=== PATIENT | male | born 1960 | race Caucasian/White ===

== ENCOUNTER 2016-02-21 18:38 | Emergency (ER) | payer OTHER ==
[~2016-02-21] VITALS: Ht 182.9 cm; Wt 120.0 kg
[~2016-02-21 18:38] MED LIST: ALPR1 PO; CARV12.52 PO; IBUP600T26 PO; LISI10TA PO; MORP30SU PO
[2016-02-21 18:50] VITALS: BP 139/73; PULSE 106; RESP 16; TEMP 99; O2SAT 99
[2016-02-21] MEDS ORDERED: CARV12.52 PO (20:57)
[2016-02-21] MEDS ORDERED: GABA600T PO (20:57)
[2016-02-21] MEDS ORDERED: LISI10TA PO (20:57)
[2016-02-21] MEDS ORDERED: XANA1TAB2 PO (20:57)
[2016-02-21] MEDS ORDERED: MORP1TAB26 PO (20:57)
[2016-02-21] MEDS ORDERED: PRED20 PO (21:06)
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
[2016-02-21] MEDS ORDERED: predniSONE 20 MG TAB PO ONE (21:15)
[2016-02-21 21:22] VITALS: BP 135/72; PULSE 92; RESP 18; O2SAT 99
== END 2016-02-21 21:23 | disposition home or self-care (01) ==
LOC: PHED 18:38
DX: R21 Rash and other nonspecific skin eruption (principal); I10 Essential (primary) hypertension; E78.00 Pure hypercholesterolemia, unspecified; F17.210 Nicotine dependence, cigarettes, uncomplicated
CPT/HCPCS: 99282; J7512

== ENCOUNTER 2017-09-28 11:55 | Inpatient (IN) ==
[2017-09-28] MEDS ORDERED: Dextrose 50% in Water 50 ML Vial IV.PUSH PRN (13:48)
--- NOTE | 2017-09-28 14:06 | ED ---
HPI General Chief complaint: Recheck/Abnormal Lab/Rx Stated complaint: Abnormal results History of Present Illness HPI narrative: A 57-year-old male with a history of hypertension and chronic pain presenting to the emergency department for evaluation of an abnormal lab result. The patient states that yesterday he went for routine blood work and the lab called him to let him know that he had a high glucose. The patient reports that his PCP also called him to recommend that he go to the emergency department for evaluation. The patient states that he got the messages late last night and was unable to come to the emergency room until this afternoon. The patient states that he has been feeling very fatigued the past few days and has been urinating much more than normal. He states that he has never had problems with his sugar prior to this. The patient states that he has been drinking more than normal because he has had a really dry mouth. Patient states that he has had some blurry vision over the past 48 hours. He denies any headaches, fever, chills, abdominal pain, confusion, cough, dysuria, or hematuria. Related Data Home Medications Medication Instructions Recorded Confirmed alprazolam [Xanax] 1 mg PO BID 09/28/17 09/28/17 carvedilol 0 mg PO BID 09/28/17 09/28/17 gabapentin enacarbil 600 mg PO BID 09/28/17 09/28/17 lisinopril 0 mg PO DAILY 09/28/17 09/28/17 morphine 60 mg PO Q12H 09/28/17 09/28/17 Allergies Allergy/AdvReac Type Severity Reaction Status Date / Time metaxalone Allergy Severe Psychosis, Verified 09/29/17 08:56 Agitation, Paranoia naproxen Allergy Severe Psychosis, Verified 09/29/17 08:56 Agitation, Paranoia simvastatin Allergy Severe Irritable Verified 09/29/17 08:56 and mental changes Review of Systems Constitutional Denies chills and Denies fever(s) Eyes Reports blurry vision and Denies photophobia ENT Denies dizziness and Denies sore throat Cardiovascular Denies chest pain and Denies diaphoresis Respiratory Denies cough and Denies dyspnea Gastrointestinal Denies abdominal pain, Denies nausea and Denies vomiting Genitourinary Denies dysuria and Denies flank pain Musculoskeletal Denies myalgias and Denies muscle weakness Integumentary/Breasts Denies rash and Denies jaundice Neurologic Denies focal weakness and Denies numbness Psychiatric Denies behavioral changes and Denies confusion Endocrine Reports fatigue, Reports polydipsia and Reports polyuria Allergic/Immunologic Denies urticaria and Denies wheezing PMFSH Family History Family History Other No pertinent family history Social History Social History Substance History: No History of Abuse Second Hand Smoke Exposure: Yes Smoking Status: Current some day smoker Tobacco Type: Cigarettes Packs Per Day: 1 Cigarettes Per Day: 20.0 Years Smoked: 50 Pack-Years: 50.00 How Often Do You Have a Drink Containing Alcohol: Never [facility] within the Last 8 Weeks: No Recent Out of Country Travel within the Last 8 Weeks: No Exam Narrative Exam Narrative: GENERAL: Well-developed and well-nourished obese male appearing in no acute respiratory distress. SKIN: Focused skin assessment warm/dry. Dry and scaly skin in the lower extremities bilaterally. Patient does have a small pilonidal cyst, no fluid collection that I can appreciate. Just some dry ashen skin lower extremities. Tinea cruris as well. HEAD: Atraumatic. Normocephalic. EYES: Pupils equal and round. No scleral icterus. No injection or drainage. ENT: No nasal bleeding or discharge. Mucous membranes pink and moist. NECK: Trachea midline. No JVD. CARDIOVASCULAR: Regular rate and rhythm. No murmur appreciated. No S3 or S4. RESPIRATORY: No accessory muscle use. Clear to auscultation. Breath sounds equal bilaterally. GASTROINTESTINAL: Abdomen soft, obese, non-tender, mildly distended. Hepatic and splenic margins not palpable. Midline previous surgical scar noted. MUSCULOSKELETAL: No obvious deformities. No clubbing. No cyanosis. +2 edema in the lower extremities bilaterally. NEUROLOGICAL: Awake and alert. No obvious cranial nerve deficits. Motor grossly within normal limits. Normal speech. Course Initial Documented Vital Signs Temperature 98.3 F 09/28/17 12:06 Pulse Rate 96 H 09/28/17 12:06 Respiratory Rate 16 09/28/17 12:06 Blood Pressure 128/63 09/28/17 12:06 Pulse Oximetry 94 L 09/28/17 12:06 Last Documented Vital Signs Temperature 97.6 F 09/29/17 04:00 Pulse Rate 82 09/29/17 09:00 Respiratory Rate 11 L 09/29/17 06:02 Blood Pressure 99/43 L 09/29/17 06:02 Pulse Oximetry 96 09/29/17 07:00 Medical Decision Making MDM Narrative Medical decision making narrative: Patient room in the emergency department, additional history is that the patient's been feeling fatigued for past month or so. He is overweight and has a heavy carbohydrate intake normally. Is, no previous diagnosis of diabetes, sugar 668, he also has some evidence of mild DKA with an anion gap of 17 and a bicarb of 18. Sodium 129 which corrects well. Patient was given 2 L normal saline, will start an insulin drip. Will discuss with Dr. Godfrey for admission new onset diabetes with mild DKA Medical Screen Exam Complete: Yes Emergency Medical Condition: Yes Differential Diagnosis Differential Diagnosis: Nonketotic hyperglycemia, hyperosmolar hyperglycemic state, electrolyte abnormality, dehydration, DKA, new onset type 2 diabetes mellitus Lab Data Result diagrams: 09/28/17 14:13 09/29/17 08:15 Lab Results 09/28/17 09/28/17 09/28/17 Range/Units 14:13 14:13 15:07 CBC w Diff Auto diff final WBC 11.0 (4.0-11.0) th/mm3 RBC 4.66 (4.50-5.90) mil/mm3 Hgb 14.2 (13.0-17.0) gm/dL Hct 42.3 (39.0-51.0) % MCV 90.8 (80.0-100.0) fL MCH 30.5 (27.0-34.0) pg MCHC 33.6 (32.0-36.0) % RDW 13.4 (11.6-17.2) % Plt Count 219 (150-450) th/mm3 MPV 8.4 (7.0-11.0) fL Neut % (Auto) 68.4 (16.0-70.0) % Lymph % (Auto) 21.8 (9.0-44.0) % [place] % (Auto) 7.3 (0.0-8.0) % Eos % (Auto) 1.7 (0.0-4.0) % Baso % (Auto) 0.8 (0.0-2.0) % Neut # (Auto) 7.5 (1.8-7.7) th/mm3 Lymph # (Auto) 2.4 (1.0-4.8) th/mm3 [place] # (Auto) 0.8 (0.0-0.9) th/mm3 Eos # (Auto) 0.2 (0.0-0.4) th/mm3 Baso # (Auto) 0.1 (0.0-0.2) th/mm3 WBC Differential . Differential Comment . Puncture Site Peripheral iv Patient Temperature 98.6 VBG pH 7.29 L* (7.360-7.400) VBG pCO2 41 L (44-48) mmHG VBG pO2 41 H (35-40) mmHG VBG HCO3 19 L (22-26) mmol/L VBG O2 Saturation 70 (70-76) % VBG O2 Content 13.3 (9.0-17.0) Vol % VBG Base Excess -6.6 L (-2-2) mmol/L VBG Carboxyhemoglobin 4.9 H (0-4) % VBG Methemoglobin 1.5 (0-2) % Hemoglobin 13.5 (12.0-16.0) G/DL O2 Delivery Device Room air Inspired O2 21 % Critical Value Yes Sodium 129 L (136-145) meq/L Potassium 4.0 (3.5-5.1) meq/L Chloride 94 L (98-107) meq/L Carbon Dioxide 18.4 L (21.0-32.0) meq/L Anion Gap 17 H (5-15) meq/L BUN 20 H (7-18) mg/dL Creatinine 1.60 H (0.60-1.30) mg/dL Estimated GFR 44 L (>89) mL/min POC Glucose (68-110) mg/dl Random Glucose 628 H* (74-106) mg/dL Calcium 8.0 L (8.5-10.1) mg/dL Prot Corrected Calcium (8.5-10.1) mg/dL Phosphorus (2.5-4.9) mg/dL Magnesium (1.5-2.5) mg/dL Total Protein (6.4-8.2) g/dL Beta-Hydroxybutyric Acd 5.14 H (0.00-0.39) mmol/L Urine Color (Yellw/Straw) Urine Clarity (Clear) Urine pH (5.0-8.5) Ur Specific [place] (1.002-1.035) Urine Protein (Neg-Trace) mg/dL Urine Glucose (UA) (Negative) mg/dL Urine Ketones (Negative) mg/dL Urine Occult Blood (Negative) Urine Nitrate (Negative) Urine Bilirubin (Negative) Urine Urobilinogen (Less than 2) mg/dL Ur Leukocyte Esterase (Negative) Micro UA Comment Urine Culture Comments 09/28/17 09/28/17 09/28/17 Range/Units 16:15 17:33 18:25 CBC w Diff WBC (4.0-11.0) th/mm3 RBC (4.50-5.90) mil/mm3 Hgb (13.0-17.0) gm/dL Hct (39.0-51.0) % MCV (80.0-100.0) fL MCH (27.0-34.0) pg MCHC (32.0-36.0) % RDW (11.6-17.2) % Plt Count (150-450) th/mm3 MPV (7.0-11.0) fL Neut % (Auto) (16.0-70.0) % Lymph % (Auto) (9.0-44.0) % [place] % (Auto) (0.0-8.0) % Eos % (Auto) (0.0-4.0) % Baso % (Auto) (0.0-2.0) % Neut # (Auto) (1.8-7.7) th/mm3 Lymph # (Auto) (1.0-4.8) th/mm3 [place] # (Auto) (0.0-0.9) th/mm3 Eos # (Auto) (0.0-0.4) th/mm3 Baso # (Auto) (0.0-0.2) th/mm3 WBC Differential Differential Comment Puncture Site Patient Temperature VBG pH (7.360-7.400) VBG pCO2 (44-48) mmHG VBG pO2 (35-40) mmHG VBG HCO3 (22-26) mmol/L VBG O2 Saturation (70-76) % VBG O2 Content (9.0-17.0) Vol % VBG Base Excess (-2-2) mmol/L VBG Carboxyhemoglobin (0-4) % VBG Methemoglobin (0-2) % Hemoglobin (12.0-16.0) G/DL O2 Delivery Device Inspired O2 % Critical Value Sodium (136-145) meq/L Potassium (3.5-5.1) meq/L Chloride (98-107) meq/L Carbon Dioxide (21.0-32.0) meq/L Anion Gap (5-15) meq/L BUN (7-18) mg/dL Creatinine (0.60-1.30) mg/dL Estimated GFR (>89) mL/min POC Glucose 415 H 325 H (68-110) mg/dl Random Glucose (74-106) mg/dL Calcium (8.5-10.1) mg/dL Prot Corrected Calcium (8.5-10.1) mg/dL Phosphorus (2.5-4.9) mg/dL Magnesium (1.5-2.5) mg/dL Total Protein (6.4-8.2) g/dL Beta-Hydroxybutyric Acd (0.00-0.39) mmol/L Urine Color Yellow (Yellw/Straw) Urine Clarity Clear (Clear) Urine pH 5.5 (5.0-8.5) Ur Specific [place] 1.010 (1.002-1.035) Urine Protein Negative (Neg-Trace) mg/dL Urine Glucose (UA) 500 H (Negative) mg/dL Urine Ketones 80 or greater (Negative) mg/dL Urine Occult Blood Trace (Negative) Urine Nitrate Negative (Negative) Urine Bilirubin Negative (Negative) Urine Urobilinogen 0.2 (Less than 2) mg/dL Ur Leukocyte Esterase Negative (Negative) Micro UA Comment Culture not ind Urine Culture Comments Culture not ind 09/28/17 09/28/17 09/28/17 Range/Units 19:32 20:15 20:32 CBC w Diff WBC (4.0-11.0) th/mm3 RBC (4.50-5.90) mil/mm3 Hgb (13.0-17.0) gm/dL Hct (39.0-51.0) % MCV (80.0-100.0) fL MCH (27.0-34.0) pg MCHC (32.0-36.0) % RDW (11.6-17.2) % Plt Count (150-450) th/mm3 MPV (7.0-11.0) fL Neut % (Auto) (16.0-70.0) % Lymph % (Auto) (9.0-44.0) % [place] % (Auto) (0.0-8.0) % Eos % (Auto) (0.0-4.0) % Baso % (Auto) (0.0-2.0) % Neut # (Auto) (1.8-7.7) th/mm3 Lymph # (Auto) (1.0-4.8) th/mm3 [place] # (Auto) (0.0-0.9) th/mm3 Eos # (Auto) (0.0-0.4) th/mm3 Baso # (Auto) (0.0-0.2) th/mm3 WBC Differential Differential Comment Puncture Site Patient Temperature VBG pH (7.360-7.400) VBG pCO2 (44-48) mmHG VBG pO2 (35-40) mmHG VBG HCO3 (22-26) mmol/L VBG O2 Saturation (70-76) % VBG O2 Content (9.0-17.0) Vol % VBG Base Excess (-2-2) mmol/L VBG Carboxyhemoglobin (0-4) % VBG Methemoglobin (0-2) % Hemoglobin (12.0-16.0) G/DL O2 Delivery Device Inspired O2 % Critical Value Sodium 137 (136-145) meq/L Potassium 3.4 L (3.5-5.1) meq/L Chloride 104 D (98-107) meq/L Carbon Dioxide 19.9 L (21.0-32.0) meq/L Anion Gap 13 (5-15) meq/L BUN 15 (7-18) mg/dL Creatinine 1.10 (0.60-1.30) mg/dL Estimated GFR 69 L (>89) mL/min POC Glucose 327 H 273 H (68-110) mg/dl Random Glucose 270 H D (74-106) mg/dL Calcium 7.7 L (8.5-10.1) mg/dL Prot Corrected Calcium (8.5-10.1) mg/dL Phosphorus (2.5-4.9) mg/dL Magnesium (1.5-2.5) mg/dL Total Protein (6.4-8.2) g/dL Beta-Hydroxybutyric Acd (0.00-0.39) mmol/L Urine Color (Yellw/Straw) Urine Clarity (Clear) Urine pH (5.0-8.5) Ur Specific [place] (1.002-1.035) Urine Protein (Neg-Trace) mg/dL Urine Glucose (UA) (Negative) mg/dL Urine Ketones (Negative) mg/dL Urine Occult Blood (Negative) Urine Nitrate (Negative) Urine Bilirubin (Negative) Urine Urobilinogen (Less than 2) mg/dL Ur Leukocyte Esterase (Negative) Micro UA Comment Urine Culture Comments 09/28/17 09/28/17 09/28/17 Range/Units 21:51 22:44 23:42 CBC w Diff WBC (4.0-11.0) th/mm3 RBC (4.50-5.90) mil/mm3 Hgb (13.0-17.0) gm/dL Hct (39.0-51.0) % MCV (80.0-100.0) fL MCH (27.0-34.0) pg MCHC (32.0-36.0) % RDW (11.6-17.2) % Plt Count (150-450) th/mm3 MPV (7.0-11.0) fL Neut % (Auto) (16.0-70.0) % Lymph % (Auto) (9.0-44.0) % [place] % (Auto) (0.0-8.0) % Eos % (Auto) (0.0-4.0) % Baso % (Auto) (0.0-2.0) % Neut # (Auto) (1.8-7.7) th/mm3 Lymph # (Auto) (1.0-4.8) th/mm3 [place] # (Auto) (0.0-0.9) th/mm3 Eos # (Auto) (0.0-0.4) th/mm3 Baso # (Auto) (0.0-0.2) th/mm3 WBC Differential Differential Comment Puncture Site Patient Temperature VBG pH (7.360-7.400) VBG pCO2 (44-48) mmHG VBG pO2 (35-40) mmHG VBG HCO3 (22-26) mmol/L VBG O2 Saturation (70-76) % VBG O2 Content (9.0-17.0) Vol % VBG Base Excess (-2-2) mmol/L VBG Carboxyhemoglobin (0-4) % VBG Methemoglobin (0-2) % Hemoglobin (12.0-16.0) G/DL O2 Delivery Device Inspired O2 % Critical Value Sodium (136-145) meq/L Potassium (3.5-5.1) meq/L Chloride (98-107) meq/L Carbon Dioxide (21.0-32.0) meq/L Anion Gap (5-15) meq/L BUN (7-18) mg/dL Creatinine (0.60-1.30) mg/dL Estimated GFR (>89) mL/min POC Glucose 341 H 237 H 211 H (68-110) mg/dl Random Glucose (74-106) mg/dL Calcium (8.5-10.1) mg/dL Prot Corrected Calcium (8.5-10.1) mg/dL Phosphorus (2.5-4.9) mg/dL Magnesium (1.5-2.5) mg/dL Total Protein (6.4-8.2) g/dL Beta-Hydroxybutyric Acd (0.00-0.39) mmol/L Urine Color (Yellw/Straw) Urine Clarity (Clear) Urine pH (5.0-8.5) Ur Specific [place] (1.002-1.035) Urine Protein (Neg-Trace) mg/dL Urine Glucose (UA) (Negative) mg/dL Urine Ketones (Negative) mg/dL Urine Occult Blood (Negative) Urine Nitrate (Negative) Urine Bilirubin (Negative) Urine Urobilinogen (Less than 2) mg/dL Ur Leukocyte Esterase (Negative) Micro UA Comment Urine Culture Comments 09/29/17 09/29/17 09/29/17 Range/Units 00:46 01:42 02:26 CBC w Diff WBC (4.0-11.0) th/mm3 RBC (4.50-5.90) mil/mm3 Hgb (13.0-17.0) gm/dL Hct (39.0-51.0) % MCV (80.0-100.0) fL MCH (27.0-34.0) pg MCHC (32.0-36.0) % RDW (11.6-17.2) % Plt Count (150-450) th/mm3 MPV (7.0-11.0) fL Neut % (Auto) (16.0-70.0) % Lymph % (Auto) (9.0-44.0) % [place] % (Auto) (0.0-8.0) % Eos % (Auto) (0.0-4.0) % Baso % (Auto) (0.0-2.0) % Neut # (Auto) (1.8-7.7) th/mm3 Lymph # (Auto) (1.0-4.8) th/mm3 [place] # (Auto) (0.0-0.9) th/mm3 Eos # (Auto) (0.0-0.4) th/mm3 Baso # (Auto) (0.0-0.2) th/mm3 WBC Differential Differential Comment Puncture Site Patient Temperature VBG pH (7.360-7.400) VBG pCO2 (44-48) mmHG VBG pO2 (35-40) mmHG VBG HCO3 (22-26) mmol/L VBG O2 Saturation (70-76) % VBG O2 Content (9.0-17.0) Vol % VBG Base Excess (-2-2) mmol/L VBG Carboxyhemoglobin (0-4) % VBG Methemoglobin (0-2) % Hemoglobin (12.0-16.0) G/DL O2 Delivery Device Inspired O2 % Critical Value Sodium (136-145) meq/L Potassium (3.5-5.1) meq/L Chloride (98-107) meq/L Carbon Dioxide (21.0-32.0) meq/L Anion Gap (5-15) meq/L BUN (7-18) mg/dL Creatinine (0.60-1.30) mg/dL Estimated GFR (>89) mL/min POC Glucose 177 H 205 H 215 H (68-110) mg/dl Random Glucose (74-106) mg/dL Calcium (8.5-10.1) mg/dL Prot Corrected Calcium (8.5-10.1) mg/dL Phosphorus (2.5-4.9) mg/dL Magnesium (1.5-2.5) mg/dL Total Protein (6.4-8.2) g/dL Beta-Hydroxybutyric Acd (0.00-0.39) mmol/L Urine Color (Yellw/Straw) Urine Clarity (Clear) Urine pH (5.0-8.5) Ur Specific [place] (1.002-1.035) Urine Protein (Neg-Trace) mg/dL Urine Glucose (UA) (Negative) mg/dL Urine Ketones (Negative) mg/dL Urine Occult Blood (Negative) Urine Nitrate (Negative) Urine Bilirubin (Negative) Urine Urobilinogen (Less than 2) mg/dL Ur Leukocyte Esterase (Negative) Micro UA Comment Urine Culture Comments 09/29/17 09/29/17 09/29/17 Range/Units 02:30 03:44 04:28 CBC w Diff WBC (4.0-11.0) th/mm3 RBC (4.50-5.90) mil/mm3 Hgb (13.0-17.0) gm/dL Hct (39.0-51.0) % MCV (80.0-100.0) fL MCH (27.0-34.0) pg MCHC (32.0-36.0) % RDW (11.6-17.2) % Plt Count (150-450) th/mm3 MPV (7.0-11.0) fL Neut % (Auto) (16.0-70.0) % Lymph % (Auto) (9.0-44.0) % [place] % (Auto) (0.0-8.0) % Eos % (Auto) (0.0-4.0) % Baso % (Auto) (0.0-2.0) % Neut # (Auto) (1.8-7.7) th/mm3 Lymph # (Auto) (1.0-4.8) th/mm3 [place] # (Auto) (0.0-0.9) th/mm3 Eos # (Auto) (0.0-0.4) th/mm3 Baso # (Auto) (0.0-0.2) th/mm3 WBC Differential Differential Comment Puncture Site Patient Temperature VBG pH (7.360-7.400) VBG pCO2 (44-48) mmHG VBG pO2 (35-40) mmHG VBG HCO3 (22-26) mmol/L VBG O2 Saturation (70-76) % VBG O2 Content (9.0-17.0) Vol % VBG Base Excess (-2-2) mmol/L VBG Carboxyhemoglobin (0-4) % VBG Methemoglobin (0-2) % Hemoglobin (12.0-16.0) G/DL O2 Delivery Device Inspired O2 % Critical Value Sodium 139 (136-145) meq/L Potassium 3.4 L (3.5-5.1) meq/L Chloride 107 (98-107) meq/L Carbon Dioxide 23.2 (21.0-32.0) meq/L Anion Gap 9 (5-15) meq/L BUN 12 (7-18) mg/dL Creatinine 0.85 (0.60-1.30) mg/dL Estimated GFR Greater than 89 (>89) mL/min POC Glucose 198 H 192 H (68-110) mg/dl Random Glucose 198 H (74-106) mg/dL Calcium 7.4 L* (8.5-10.1) mg/dL Prot Corrected Calcium 8.2 L (8.5-10.1) mg/dL Phosphorus 1.7 L (2.5-4.9) mg/dL Magnesium 2.0 (1.5-2.5) mg/dL Total Protein 5.6 L (6.4-8.2) g/dL Beta-Hydroxybutyric Acd 1.11 H D (0.00-0.39) mmol/L Urine Color (Yellw/Straw) Urine Clarity (Clear) Urine pH (5.0-8.5) Ur Specific [place] (1.002-1.035) Urine Protein (Neg-Trace) mg/dL Urine Glucose (UA) (Negative) mg/dL Urine Ketones (Negative) mg/dL Urine Occult Blood (Negative) Urine Nitrate (Negative) Urine Bilirubin (Negative) Urine Urobilinogen (Less than 2) mg/dL Ur Leukocyte Esterase (Negative) Micro UA Comment Urine Culture Comments 09/29/17 09/29/17 09/29/17 Range/Units 05:41 06:30 07:42 CBC w Diff WBC (4.0-11.0) th/mm3 RBC (4.50-5.90) mil/mm3 Hgb (13.0-17.0) gm/dL Hct (39.0-51.0) % MCV (80.0-100.0) fL MCH (27.0-34.0) pg MCHC (32.0-36.0) % RDW (11.6-17.2) % Plt Count (150-450) th/mm3 MPV (7.0-11.0) fL Neut % (Auto) (16.0-70.0) % Lymph % (Auto) (9.0-44.0) % [place] % (Auto) (0.0-8.0) % Eos % (Auto) (0.0-4.0) % Baso % (Auto) (0.0-2.0) % Neut # (Auto) (1.8-7.7) th/mm3 Lymph # (Auto) (1.0-4.8) th/mm3 [place] # (Auto) (0.0-0.9) th/mm3 Eos # (Auto) (0.0-0.4) th/mm3 Baso # (Auto) (0.0-0.2) th/mm3 WBC Differential Differential Comment Puncture Site Patient Temperature VBG pH (7.360-7.400) VBG pCO2 (44-48) mmHG VBG pO2 (35-40) mmHG VBG HCO3 (22-26) mmol/L VBG O2 Saturation (70-76) % VBG O2 Content (9.0-17.0) Vol % VBG Base Excess (-2-2) mmol/L VBG Carboxyhemoglobin (0-4) % VBG Methemoglobin (0-2) % Hemoglobin (12.0-16.0) G/DL O2 Delivery Device Inspired O2 % Critical Value Sodium (136-145) meq/L Potassium (3.5-5.1) meq/L Chloride (98-107) meq/L Carbon Dioxide (21.0-32.0) meq/L Anion Gap (5-15) meq/L BUN (7-18) mg/dL Creatinine (0.60-1.30) mg/dL Estimated GFR (>89) mL/min POC Glucose 178 H 162 H 269 H (68-110) mg/dl Random Glucose (74-106) mg/dL Calcium (8.5-10.1) mg/dL Prot Corrected Calcium (8.5-10.1) mg/dL Phosphorus (2.5-4.9) mg/dL Magnesium (1.5-2.5) mg/dL Total Protein (6.4-8.2) g/dL Beta-Hydroxybutyric Acd (0.00-0.39) mmol/L Urine Color (Yellw/Straw) Urine Clarity (Clear) Urine pH (5.0-8.5) Ur Specific [place] (1.002-1.035) Urine Protein (Neg-Trace) mg/dL Urine Glucose (UA) (Negative) mg/dL Urine Ketones (Negative) mg/dL Urine Occult Blood (Negative) Urine Nitrate (Negative) Urine Bilirubin (Negative) Urine Urobilinogen (Less than 2) mg/dL Ur Leukocyte Esterase (Negative) Micro UA Comment Urine Culture Comments 09/29/17 Range/Units 08:15 CBC w Diff WBC (4.0-11.0) th/mm3 RBC (4.50-5.90) mil/mm3 Hgb (13.0-17.0) gm/dL Hct (39.0-51.0) % MCV (80.0-100.0) fL MCH (27.0-34.0) pg MCHC (32.0-36.0) % RDW (11.6-17.2) % Plt Count (150-450) th/mm3 MPV (7.0-11.0) fL Neut % (Auto) (16.0-70.0) % Lymph % (Auto) (9.0-44.0) % [place] % (Auto) (0.0-8.0) % Eos % (Auto) (0.0-4.0) % Baso % (Auto) (0.0-2.0) % Neut # (Auto) (1.8-7.7) th/mm3 Lymph # (Auto) (1.0-4.8) th/mm3 [place] # (Auto) (0.0-0.9) th/mm3 Eos # (Auto) (0.0-0.4) th/mm3 Baso # (Auto) (0.0-0.2) th/mm3 WBC Differential Differential Comment Puncture Site Patient Temperature VBG pH (7.360-7.400) VBG pCO2 (44-48) mmHG VBG pO2 (35-40) mmHG VBG HCO3 (22-26) mmol/L VBG O2 Saturation (70-76) % VBG O2 Content (9.0-17.0) Vol % VBG Base Excess (-2-2) mmol/L VBG Carboxyhemoglobin (0-4) % VBG Methemoglobin (0-2) % Hemoglobin (12.0-16.0) G/DL O2 Delivery Device Inspired O2 % Critical Value Sodium 141 (136-145) meq/L Potassium 3.7 (3.5-5.1) meq/L Chloride 110 H (98-107) meq/L Carbon Dioxide 21.9 (21.0-32.0) meq/L Anion Gap 9 (5-15) meq/L BUN 11 (7-18) mg/dL Creatinine 0.81 (0.60-1.30) mg/dL Estimated GFR Greater than 89 (>89) mL/min POC Glucose (68-110) mg/dl Random Glucose 172 H (74-106) mg/dL Calcium 7.3 L* (8.5-10.1) mg/dL Prot Corrected Calcium 7.9 L (8.5-10.1) mg/dL Phosphorus 1.3 L (2.5-4.9) mg/dL Magnesium 1.9 (1.5-2.5) mg/dL Total Protein 5.9 L (6.4-8.2) g/dL Beta-Hydroxybutyric Acd (0.00-0.39) mmol/L Urine Color (Yellw/Straw) Urine Clarity (Clear) Urine pH (5.0-8.5) Ur Specific [place] (1.002-1.035) Urine Protein (Neg-Trace) mg/dL Urine Glucose (UA) (Negative) mg/dL Urine Ketones (Negative) mg/dL Urine Occult Blood (Negative) Urine Nitrate (Negative) Urine Bilirubin (Negative) Urine Urobilinogen (Less than 2) mg/dL Ur Leukocyte Esterase (Negative) Micro UA Comment Urine Culture Comments Discharge Plan Discharge Disposition Patient Disposition: 30 Still Patient Discharge Condition Condition: Fair Discharge Details Diagnosis: DKA (diabetic ketoacidoses), Diabetes mellitus, new onset Physicians Team ED Provider: Doe Cabezas Primary Care Provider: Markell Gannon Attending Provider: Chin Godfrey Other Providers: [employer] Status ED Status: Left Department Discharge Information Discharge Date/Time: 09/28/17 17:22
[2017-09-28 14:33] LABS: Baso # (Auto) 0.1 th/mm3 (0.0-0.2); Baso % (Auto) 0.8 % (0.0-2.0); Eos # (Auto) 0.2 th/mm3 (0.0-0.4); Eos % (Auto) 1.7 % (0.0-4.0); Hematocrit 42.3 % (39.0-51.0); Hemoglobin 14.2 gm/dL (13.0-17.0); Lymph # (Auto) 2.4 th/mm3 (1.0-4.8); Lymph % (Auto) 21.8 % (9.0-44.0); Mean Corpuscular HGB Conc 33.6 % (32.0-36.0); Mean Corpuscular Hemoglobin 30.5 pg (27.0-34.0); Mean Corpuscular Volume 90.8 fL (80.0-100.0); Mean Platelet Volume 8.4 fL (7.0-11.0); Mono # (Auto) 0.8 th/mm3 (0.0-0.9); Mono % (Auto) 7.3 % (0.0-8.0); Neut # (Auto) 7.5 th/mm3 (1.8-7.7); Neut % (Auto) 68.4 % (16.0-70.0); Platelet Count 219 th/mm3 (150-450); Red Blood Count 4.66 mil/mm3 (4.50-5.90); Red Cell Distribution Width 13.4 % (11.6-17.2)
[2017-09-28] MEDS ORDERED: Sod Chloride 0.9% Inj 1,000 ML IV.SIG ONE ×2 (14:43→14:49)
[2017-09-28 14:44] LABS: Carbon Dioxide 18.4 meq/L (21.0-32.0)
[2017-09-28] MEDS ORDERED: Insulin Regular (For Infusion) 100 UNIT in Sodium Chlor 0.9% Inj 99 ML IV.CONT PRN (15:06)
[2017-09-28] MEDS ORDERED: Potassium Chlor 20 mEq Premix 20 MEQ/100 ML PIGGYBACK IV.SIG PRN ×6 (15:06)
[2017-09-28] MEDS ORDERED: Potassium Chlor 40 mEq Premix 40 MEQ/100 ML PIGGYBACK IV.SIG PRN (15:06)
[2017-09-28] MEDS ORDERED: Sodium Phosphate Inj 15 MMOL in Sodium Chlor 0.9% Inj 100 ML IV.SIG PRN (15:06)
[2017-09-28 15:16] LABS: VBG Base Excess -6.6 mmol/L (-2-2); VBG Blood Gas Oxygen Content 13.3 Vol % (9.0-17.0); VBG PCO2 41 mmHG (44-48); VBG PH 7.29 (7.360-7.400); VBG PO2 41 mmHG (35-40)
[2017-09-28 15:39] LABS: Beta Hydroxybutyric Acid 5.14 mmol/L (0.00-0.39)
[2017-09-28] MEDS ORDERED: Acetaminophen 325 MG Tablet PO PRN (15:44)
[2017-09-28] MEDS ORDERED: Bisacodyl 10 MG Supp RECTAL PRN (15:44)
--- NOTE | 2017-09-28 16:10 | P.HP ---
History of Present Illness Primary Care Physician: Markell Gannon MD Chief Complaint: Elevated blood sugar History of Present Illness: This is a 57-year-old male patient with a known medical history of hypertension , neuropathy and chronic pain who presented to the ED with abnormal lab results. Patient states that yesterday he went to his PCP who performed routine blood work and was told that his random glucose was in the 600s and was recommended to present to the emergency department for evaluation. Patient states that he has been feeling very fatigued and tired for the last 2 weeks with complaints of increasing urination as well as dry mouth. He states that he has been drinking increasing amounts of liquids without any relief of his dry mouth. He denies any recent illness including fever, chills, cough, shortness of breath, dumping, nausea, vomiting, diarrhea or dysuria. Patient does state that he has been increasingly anxious and stressed lately. He does state that he has been eating increasing amounts of junk food and has not been exercising. He is compliant with his medications. He does admit to some blurry vision associated with his other complaints. Patient does admit to smoking 1 pack a day of cigarettes 50 years. - Diagnosis (1) DKA (diabetic ketoacidoses) (2) Diabetes mellitus, new onset (3) Hypertension Inpatient Certification: I certify that the inpatient services were ordered in accordance with Medicare regulations governing the order. This includes certification that hospital inpatient services are reasonable and necessary and in the case of services not specified as inpatient-only under 42 CFR 419.22(n), that they are appropriately provided as inpatient services in accordance to with the 2-midnight benchmark under 43 CFR 412.3(e) Estimated Total Length of Stay (Days): 2 Plans for Post Hospital Care: Not yet determined Review of Systems All other systems reviewed negative except as stated in HPI PMFSH - History History Provided By: Patient - Medical History Medical History: Medical History (Last Updated 09/28/17 @ 16:36 by My Escoto) History of hypertension Hx of pneumothorax - Surgical History Surgical History: Surgical History (Last Updated 09/28/17 @ 16:36 by My Escoto) H/O exploratory laparotomy Status post left foot surgery - Family History Family History: Family History (Last Updated 09/28/17 @ 16:36 by My Escoto) Other No pertinent family history - Tobacco History Second Hand Smoke Exposure: No Tobacco Use In Past 30 Days: Yes Smoking Status: Current every day smoker Tobacco Type: Cigarettes Packs Per Day: 1 Years Smoked: 50 - Alcohol History How Often Do You Have a Drink Containing Alcohol: Never - Substance Use History Substance History: No History of Abuse - Travel History Recent Travel in the [place] Within the Last 8 Weeks: No Recent Travel Out of the Country Within the Last 8 Weeks: No - Immunization History Tetanus Immunization: >5 Years Hx Influenza Vaccine This Season: Yes Medications and Allergies Active Medications: Active Medications Acetaminophen (Tylenol) 650 mg PO Q4H PRN PRN Reason: Temp > 100.4 Alprazolam (Xanax) 1 mg PO BID PRN PRN Reason: ANXIETY Bisacodyl (Dulcolax Supp) 10 mg RECTAL DAILY PRN PRN Reason: SEVERE CONSITIPATION Carvedilol (Coreg) 12.5 mg PO BID LEONEL Chlorhexidine Gluconate (Chlorhexidine 2% Cloth) 3 pack TOPICAL DAILY@0400 LEONEL Stop: 10/04/17 03:59 Chlorhexidine Gluconate (Chlorhexidine 2% Cloth) 3 pack TOPICAL DAILY@0400 PRN PRN Reason: Extra cloth needed Stop: 10/04/17 03:59 Dextrose (D50w Vial) 50 ml IV.PUSH UNSCH PRN PRN Reason: PER HYPOGLYCEMIA PROTOCOL Gabapentin (Neurontin) 600 mg PO BID LEONEL Heparin Sodium (Porcine) (Heparin Inj) 5,000 units SQ Q8HR LEONEL Insulin Human Regular 100 unit (/ Sodium Chloride) 100 mls @ 13 mls/hr IV.CONT TITRATE PRN; Protocol PRN Reason: See protocol Potassium Chloride (Kcl 20 Meq Premix Inj) 20 meq in 100 mls @ 100 mls/hr IV.SIG Q1H PRN PRN Reason: for K+ 4.5 to 5 Potassium Chloride (Kcl 20 Meq Premix Inj) 20 meq in 100 mls @ 50 mls/hr IV.SIG Q2H PRN PRN Reason: for K+ 4.5 to 5 Potassium Chloride (Kcl 20 Meq Premix Inj) 20 meq in 100 mls @ 100 mls/hr IV.SIG Q1H PRN PRN Reason: for K+ 3.5 to 4.4 Potassium Chloride (Kcl 20 Meq Premix Inj) 20 meq in 100 mls @ 50 mls/hr IV.SIG Q2H PRN PRN Reason: for Initial K+ ONLY < 3.5 Potassium Chloride (Kcl 40 Meq Premix Inj) 40 meq in 100 mls @ 100 mls/hr IV.SIG Q1H PRN PRN Reason: for Initial K+ ONLY < 3.5 Potassium Chloride (Kcl 20 Meq Premix Inj) 20 meq in 100 mls @ 50 mls/hr IV.SIG Q2H PRN PRN Reason: for Subsequent K+ < 3.5 Potassium Chloride (Kcl 40 Meq Premix Inj) 40 meq in 100 mls @ 50 mls/hr IV.SIG Q2H PRN PRN Reason: for Subsequent K+ < 3.5 Sodium Phosphate 15 mmol/ (Sodium Chloride) 105 mls @ 25 mls/hr IV.SIG UNSCH PRN PRN Reason: for Phosphate Level < 1.0 Dextrose/Sodium Chloride (D5w/Normal Saline Inj) 1,000 mls @ 200 mls/hr IV.CONT .Q5H LEONEL Potassium Chloride (Kcl 20 Meq Premix Inj) 20 meq in 100 mls @ 50 mls/hr IV.SIG Q2H PRN PRN Reason: for K+ 3.5 to 4.4 Sodium Chloride (Ns Inj) 1,000 mls @ 100 mls/hr IV.CONT .Q10H LEONEL Lactulose (Lactulose Liq) 30 ml PO DAILY PRN PRN Reason: SEVERE CONSITIPATION Morphine Sulfate (Oramorph Sr) 60 mg PO Q12HR LEONEL Ondansetron HCl (Zofran Inj) 4 mg IV.PUSH Q6H PRN PRN Reason: NAUSEA OR VOMITING Senna/Docusate Sodium (Tangela-Colace) 1 tab PO BID LEONEL Sennosides (Senokot) 17.2 mg PO Q12H PRN PRN Reason: Moderate Constipation Sodium Bicarbonate (Sodium Bicarbonate 8.4% Inj) 100 meq IV.PUSH UNSCH PRN PRN Reason: for pH less than 6.9 Sodium Bicarbonate (Sodium Bicarbonate 8.4% Inj) 50 meq IV.PUSH UNSCH PRN PRN Reason: for pH 6.9 to 7.0 Sodium Chloride (Ns Flush) 2 ml IV.FLUSH PRN PRN PRN Reason: FLUSH AFTER USING IV ACCESS Allergies Allergy/AdvReac Type Severity Reaction Status Date / Time metaxalone Allergy Severe Psychosis, Verified 09/29/17 08:56 Agitation, Paranoia naproxen Allergy Severe Psychosis, Verified 09/29/17 08:56 Agitation, Paranoia simvastatin Allergy Severe Irritable Verified 09/29/17 08:56 and mental changes Home Medications Medication Instructions Recorded Confirmed Type alprazolam [Xanax] 1 mg PO BID 09/28/17 09/28/17 History carvedilol 0 mg PO BID 09/28/17 09/28/17 History gabapentin enacarbil 600 mg PO BID 09/28/17 09/28/17 History lisinopril 0 mg PO DAILY 09/28/17 09/28/17 History morphine 60 mg PO Q12H 09/28/17 09/28/17 History Exam Vital signs: Vital Signs 09/28/17 12:06 09/28/17 12:09 09/28/17 13:50 Temperature 98.3 F Pulse Rate 96 H 83 96 H Respiratory Rate 16 18 Blood Pressure 128/63 115/61 Pulse Oximetry 94 L 94 L 95 Intake & Output 09/27/17 09/28/17 09/28/17 18:59 06:59 18:59 Weight 129 kg Narrative: GENERAL: Well-developed, well-nourished obese male patient in [facility]. SKIN: Warm and dry. No rash. HEAD: Normocephalic. Atraumatic. EYES: Pupils equal and round. No scleral icterus. No injection or drainage. ENT: No nasal bleeding or discharge. Mucous membranes pink and moist. NECK: Supple. Trachea midline. CARDIOVASCULAR: Regular rate and rhythm. S1, S2 noted. No murmur appreciated. RESPIRATORY: No accessory muscle use. Clear to auscultation. Breath sounds equal bilaterally. GASTROINTESTINAL: Abdomen soft, non-tender, nondistended, round. Normoactive bowel sounds x4. MUSCULOSKELETAL: No obvious deformities. Extremities without clubbing, cyanosis. Bilateral lower extremity trace edema. NEUROLOGICAL: Awake and alert. No obvious cranial nerve deficits. Motor grossly within normal limits. 5/5 muscle strength in bilateral upper and lower extremities. Normal speech. PSYCHIATRIC: Appropriate mood and affect; insight and judgment normal. Results - Labs CBC & Chem 7: 09/28/17 14:13 09/29/17 08:15 Labs: Laboratory Results - last 24 hr 09/28/17 09/28/17 09/28/17 14:13 14:13 15:07 CBC w Diff Auto diff final WBC 11.0 RBC 4.66 Hgb 14.2 Hct 42.3 MCV 90.8 MCH 30.5 MCHC 33.6 RDW 13.4 Plt Count 219 MPV 8.4 Neut % (Auto) 68.4 Lymph % (Auto) 21.8 Mora % (Auto) 7.3 Eos % (Auto) 1.7 Baso % (Auto) 0.8 Neut # (Auto) 7.5 Lymph # (Auto) 2.4 Mora # (Auto) 0.8 Eos # (Auto) 0.2 Baso # (Auto) 0.1 WBC Differential . Differential Comment . Puncture Site Peripheral iv Patient Temperature 98.6 VBG pH 7.29 L* VBG pCO2 41 L VBG pO2 41 H VBG HCO3 19 L VBG O2 Saturation 70 VBG O2 Content 13.3 VBG Base Excess -6.6 L VBG Carboxyhemoglobin 4.9 H VBG Methemoglobin 1.5 Hemoglobin 13.5 O2 Delivery Device Room air Inspired O2 21 Critical Value Yes Sodium 129 L Potassium 4.0 Chloride 94 L Carbon Dioxide 18.4 L Anion Gap 17 H BUN 20 H Creatinine 1.60 H Estimated GFR 44 L Random Glucose 628 H* Calcium 8.0 L Beta-Hydroxybutyric Acd 5.14 H Caprini VTE Risk Assessment Caprini VTE Risk Assessment: Moderate/High Risk (score >= 2) Caprini Risk Assessment Model: Point Value = 1 Point Value = 2 Point Value = 3 Point Value = 5 Age 41-60 Minor surgery BMI > 25 kg/m2 Swollen legs Varicose veins or History of unexplained or recurrent spontaneous Oral contraceptives or hormone replacement Sepsis (< 1 month) Serious lung disease, including pneumonia (< 1 month) Abnormal pulmonary function Acute myocardial infarction Congestive heart failure (< 1 month) History of inflammatory bowel disease Medical patient at bed rest Age 61-74 Arthroscopic surgery Major open surgery (> 45 min) Laparoscopic surgery (> 45 min) Malignancy Confined to bed (> 72 hours) Immobilizing plaster cast Central venous access Age >= 75 History of VTE Family history of VTE Factor V Leiden Prothrombin [id number] Lupus anticoagulant Anticardiolipin antibodies Elevated serum homocysteine Heparin-induced thrombocytopenia Other congenital or acquired thrombophilia Stroke (< 1 month) Elective arthroplasty Hip, pelvis, or leg fracture Acute spinal cord injury (< 1 month) Prophylaxis Regimen: Total Risk Factor Score Risk Level Prophylaxis Regimen 0-1 Low Early ambulation 2 Moderate Order ONE of the following: *Sequential Compression Device (SCD) *Heparin 5000 units SQ BID 3-4 Higher Order ONE of the following medications: *Heparin 5000 units SQ TID *Enoxaparin/Lovenox 40 mg SQ daily (WT < 150 kg, CrCl > 30 mL/min) *Enoxaparin/Lovenox 30 mg SQ daily (WT < 150 kg, CrCl > 10-29 mL/min) *Enoxaparin/Lovenox 30 mg SQ BID (WT < 150 kg, CrCl > 30 mL/min) AND/OR *Sequential Compression Device (SCD) 5 or more Highest Order ONE of the following medications: *Heparin 5000 units SQ TID (Preferred with Epidurals) *Enoxaparin/Lovenox 40 mg SQ daily (WT < 150 kg, CrCl > 30 mL/min) *Enoxaparin/Lovenox 30 mg SQ daily (WT < 150 kg, CrCl > 10-29 mL/min) *Enoxaparin/Lovenox 30 mg SQ BID (WT < 150 kg, CrCl > 30 mL/min) AND *Sequential Compression Device (SCD) Assessment and Plan - Assessment (1) DKA (diabetic ketoacidoses) Code(s): E13.10 - Other specified diabetes mellitus with ketoacidosis without coma Status: Acute (2) Diabetes mellitus, new onset Code(s): E11.9 - Type 2 diabetes mellitus without complications Status: Acute (3) Hypertension Code(s): I10 - Essential (primary) hypertension Status: Acute - Plan This is a 57-year-old male patient with: Acute diabetic ketoacidosis New onset diabetes mellitus -Patient with complaints of polyuria, polydipsia and elevated random glucose in the 600's upon presentation. -PH 7.29, anion gap 17, beta hydroxybutyrate 5.14. -Will admit patient to ICU for closer monitoring. -DKA protocol initiated. -art educator as well as dietitian consulted, input and recommendations pending. -Hemoglobin A1c ordered and pending, will follow. -Diabetic ADA diet ordered. Monitor blood sugar trends. -CBC reviewed, essentially remarkable. Pseudo-hyponatremia suspect secondary to DKA Sodium 129 upon presentation. This is suspected reaction while in acute DKA. We will continue to monitor BMP according to protocol. Acute kidney injury suspect secondary to DKA. -Creatinine 1.6/GFR 44 on presentation. Will continue IV fluid. This should improve with resolution of DKA. -Continue to monitor BMP. Hypertension, chronic: We will continue home medications. Monitor blood pressure trends. Chronic back pain: Patient is prescribed p.o. morphine at home. E-forcse database reviewed, will continue as prescribed at home. History of anxiety: Will continue home Xanax. E-forcse reviewed. DVT prophylaxis: SCDs. Heparin.
[2017-09-28] MEDS: Sod Chloride 0.9% Inj 1,000 ML IV.CONT SCH (16:48)
[2017-09-28 17:02] LABS: Bilirubin,Urine Negative (Negative); Clarity,Urine Clear (Clear); Color,Urine Yellow (Yellw/Straw); Glucose,Urine (UA) 500 mg/dL (Negative); Leukocyte Esterase,Urine Negative (Negative); Nitrite,Urine Negative (Negative); PH,Urine 5.5 (5.0-8.5); Urobilinogen,Urine 0.2 mg/dL (Less than 2)
[2017-09-28] MEDS: Carvedilol 12.5 MG Tablet PO SCH (20:48)
[2017-09-28 20:53] LABS: Calcium 7.7 mg/dL (8.5-10.1); Carbon Dioxide 19.9 meq/L (21.0-32.0); Potassium 3.4 meq/L (3.5-5.1)
[2017-09-28] MEDS ORDERED: GABAPENTIN ENACARBIL PO SCH (21:00)
[2017-09-28] MEDS: Potassium Chlor 10 mEq Premix 10 MEQ/100 ML PIGGYBACK IV.SIG SCH ×2 (21:52→23:14)
[2017-09-28] MEDS: Heparin - SQ 10,000 UNITS/ML Vial SQ SCH ×2 (21:58→21:59)
[2017-09-28] MEDS: Morphine Sulfate 60 MG SR Tablet PO SCH (21:59)
[2017-09-28] MEDS: Senna/Docusate Sodium 8.6/50 MG Tablet PO SCH (22:00)
--- NOTE | 2017-09-28 23:44 | ECG ---
Date Performed: 09/28/2017 Time Performed: 13:58:12 PTAGE: 57 years EKG: Sinus rhythm NORMAL ECG PREVIOUS TRACING : 04/09/2011 09.36 Since the previous tracing, no significant change noted DOCTOR: Aristeo Garg Interpretating Date/Time 09/28/2017 23:43:44
[2017-09-29] MEDS: Potassium Chlor 40 mEq Premix 40 MEQ/100 ML PIGGYBACK IV.SIG PRN ×2 (00:17→04:27)
[2017-09-29 02:47] LABS: Chloride 107 meq/L (98-107); Potassium 3.4 meq/L (3.5-5.1); Sodium 139 meq/L (136-145)
[2017-09-29 03:05] LABS: Anion Gap 9 meq/L (5-15); Beta Hydroxybutyric Acid 1.11 mmol/L (0.00-0.39); Blood Urea Nitrogen 12 mg/dL (7-18); Calcium 7.4 mg/dL (8.5-10.1); Carbon Dioxide 23.2 meq/L (21.0-32.0); Glomerular Filtration Rate Greater Than 89 mL/min (>89); Glucose,Random 198 mg/dL (74-106); Phosphorus 1.7 mg/dL (2.5-4.9)
[2017-09-29 03:23] LABS: Total Protein 5.6 g/dL (6.4-8.2)
[2017-09-29] MEDS ORDERED: Chlorhexidine Gluconate 2% 1 Pack (2 Cloths) TOPICAL PRN (04:00)
[2017-09-29] MEDS: Dextrose 5%/NaCl 0.9% Inj 1,000 ML IV.CONT SCH ×6 (04:29→21:53)
[2017-09-29] MEDS: Chlorhexidine Gluconate 2% 1 Pack (2 Cloths) TOPICAL SCH (07:00)
[2017-09-29] MEDS: Heparin - SQ 10,000 UNITS/ML Vial SQ SCH ×3 (07:01→22:00)
[2017-09-29] MEDS: Sod Chloride 0.9% Inj 1,000 ML IV.CONT SCH ×2 (08:27→12:26)
[2017-09-29 08:39] LABS: Chloride 110 meq/L (98-107); Potassium 3.7 meq/L (3.5-5.1); Sodium 141 meq/L (136-145)
[2017-09-29 08:52] LABS: Anion Gap 9 meq/L (5-15); Blood Urea Nitrogen 11 mg/dL (7-18); Calcium 7.3 mg/dL (8.5-10.1); Carbon Dioxide 21.9 meq/L (21.0-32.0); Glomerular Filtration Rate Greater Than 89 mL/min (>89); Glucose,Random 172 mg/dL (74-106); Magnesium 1.9 mg/dL (1.5-2.5); Phosphorus 1.3 mg/dL (2.5-4.9)
[2017-09-29] MEDS: Senna/Docusate Sodium 8.6/50 MG Tablet PO SCH ×2 (08:58→20:41)
[2017-09-29] MEDS: Carvedilol 12.5 MG Tablet PO SCH ×2 (08:58→20:39)
[2017-09-29] MEDS: Morphine Sulfate 60 MG SR Tablet PO SCH ×2 (08:58→20:39)
[2017-09-29 09:41] LABS: Total Protein 5.9 g/dL (6.4-8.2)
--- NOTE | 2017-09-29 09:56 | P.PN ---
Subjective Interval history: Follow up DKA. Patient seen and examined, sitting in chair comfortably. Physical therapy worked with patient today, patient does state that he feels somewhat fatigued. Has been eating well with no abdominal pain, nausea or vomiting. Anion gap closed. Off insulin drip. Started long-acting insulin. Monitor blood sugar trends. Awaiting dietitian and nurses educator. Physical Exam Vital signs: Vital Signs 09/28/17 12:06 09/28/17 12:09 09/28/17 13:50 Temperature 98.3 F Pulse Rate 96 H 83 96 H Respiratory Rate 16 18 Blood Pressure 128/63 115/61 Pulse Oximetry 94 L 94 L 95 09/28/17 15:44 09/28/17 15:58 09/28/17 17:00 Temperature Pulse Rate 89 Respiratory Rate 18 Blood Pressure 124/62 Pulse Oximetry 97 96 09/28/17 18:00 09/28/17 19:00 09/28/17 19:02 Temperature Pulse Rate 92 H 86 88 Respiratory Rate 22 16 22 Blood Pressure 117/61 104/59 L Pulse Oximetry 94 L 96 95 09/28/17 20:00 09/28/17 20:02 09/28/17 21:00 Temperature 98.6 F Pulse Rate 84 84 90 Respiratory Rate 21 19 30 H Blood Pressure 98/56 L 98/56 L Pulse Oximetry 91 L 90 L 09/28/17 21:02 09/28/17 22:02 09/28/17 23:02 Temperature 98.9 F 98.8 F Pulse Rate 88 90 86 Respiratory Rate 11 L 21 20 Blood Pressure 113/67 122/54 L 98/55 L Pulse Oximetry 96 97 09/28/17 23:49 09/29/17 00:00 09/29/17 00:19 Temperature 98.8 F Pulse Rate 82 80 Respiratory Rate 20 22 17 Blood Pressure 107/64 107/64 Pulse Oximetry 95 96 09/29/17 01:02 09/29/17 02:02 09/29/17 03:00 Temperature Pulse Rate 80 78 80 Respiratory Rate 25 H 24 16 Blood Pressure 105/45 L 104/53 L 116/72 Pulse Oximetry 96 96 95 09/29/17 03:02 09/29/17 04:00 09/29/17 04:02 Temperature 97.6 F Pulse Rate 80 76 78 Respiratory Rate 17 16 12 Blood Pressure 116/72 107/77 107/77 Pulse Oximetry 100 09/29/17 05:00 09/29/17 05:02 09/29/17 06:00 Temperature Pulse Rate 80 76 74 Respiratory Rate 19 Blood Pressure 132/64 132/64 Pulse Oximetry 96 09/29/17 06:02 09/29/17 07:00 09/29/17 09:00 Temperature Pulse Rate 74 82 Respiratory Rate 11 L Blood Pressure 99/43 L Pulse Oximetry 96 Intake & Output 09/28/17 09/29/17 09/29/17 18:59 06:59 18:59 Intake Total 2049 / 0 1400 / 1400 794 / 794 Output Total 1400 / 1400 1000 / 1000 Balance 650 / 650 400 / 400 794 / 794 Weight 130 kg 132.9 kg Intake: IV 1999 / 1999 1400 / 1400 794 / 794 D5W/Normal Saline Inj 1,000 ML 494 / 494 @ 200 mls/hr IV.CONT .Q5H LEONEL Rx#:[id number] NovoLIN R (IV Infusion) 100 100 / 100 UNIT In NS Inj 99 ML @ 13 UNITS /HR 13 mls/hr IV.CONT TITRATE PRN Rx#:[id number] NS Inj 1,000 ML @ 100 mls/hr IV 1000 / 1000 .CONT .Q10H LEONEL Rx#:[id number] KCl 10 mEq Premix Inj 10 meq In 200 / 200 100 ml @ 100 mls/hr IV.SIG Q1H LEONEL Rx#:[id number] KCl 20 mEq Premix Inj 20 meq In 100 / 100 100 / 100 100 ml @ 100 mls/hr IV.SIG Q1H PRN Rx#:[id number] KCl 40 mEq Premix Inj 40 meq In 100 / 100 100 / 100 100 ml @ 50 mls/hr IV.SIG Q2H PRN Rx#:[id number] NS Inj 1,000 ML @ Wide Open IV. 1000 / 1000 SIG BOLUS ONE Rx#:[id number] Oral 50 / 50 Output: Urine 1400 / 1400 1000 / 1000 Other: # Voids 2 Date of Last Bowel Movement 09/28/17 09/28/17 Weight On Admission 130.5 kg Narrative: GENERAL: Well-developed, well-nourished obese male patient in NAD. SKIN: Warm and dry. No rash. HEAD: Normocephalic. Atraumatic. EYES: Pupils equal and round. No scleral icterus. No injection or drainage. ENT: No nasal bleeding or discharge. Mucous membranes pink and moist. NECK: Supple. Trachea midline. CARDIOVASCULAR: Regular rate and rhythm. S1, S2 noted. No murmur appreciated. RESPIRATORY: No accessory muscle use. Clear to auscultation. Breath sounds equal bilaterally. GASTROINTESTINAL: Abdomen soft, non-tender, nondistended, round. Normoactive bowel sounds x4. MUSCULOSKELETAL: No obvious deformities. Extremities without clubbing, cyanosis. Bilateral lower extremity trace edema. NEUROLOGICAL: Awake and alert. No obvious cranial nerve deficits. Motor grossly within normal limits. 5/5 muscle strength in bilateral upper and lower extremities. Normal speech. PSYCHIATRIC: Appropriate mood and affect; insight and judgment normal. Results - Labs CBC & Chem 7: 09/28/17 14:13 09/29/17 08:15 Laboratory Results - last 24 hr 09/28/17 09/28/17 09/28/17 14:13 14:13 15:07 CBC w Diff Auto diff final WBC 11.0 RBC 4.66 Hgb 14.2 Hct 42.3 MCV 90.8 MCH 30.5 MCHC 33.6 RDW 13.4 Plt Count 219 MPV 8.4 Neut % (Auto) 68.4 Lymph % (Auto) 21.8 [place] % (Auto) 7.3 Eos % (Auto) 1.7 Baso % (Auto) 0.8 Neut # (Auto) 7.5 Lymph # (Auto) 2.4 [place] # (Auto) 0.8 Eos # (Auto) 0.2 Baso # (Auto) 0.1 WBC Differential . Differential Comment . Puncture Site Peripheral iv Patient Temperature 98.6 VBG pH 7.29 L* VBG pCO2 41 L VBG pO2 41 H VBG HCO3 19 L VBG O2 Saturation 70 VBG O2 Content 13.3 VBG Base Excess -6.6 L VBG Carboxyhemoglobin 4.9 H VBG Methemoglobin 1.5 Hemoglobin 13.5 O2 Delivery Device Room air Inspired O2 21 Critical Value Yes Sodium 129 L Potassium 4.0 Chloride 94 L Carbon Dioxide 18.4 L Anion Gap 17 H BUN 20 H Creatinine 1.60 H Estimated GFR 44 L POC Glucose Random Glucose 628 H* Calcium 8.0 L Prot Corrected Calcium Phosphorus Magnesium Total Protein Beta-Hydroxybutyric Acd 5.14 H Urine Color Urine Clarity Urine pH Ur Specific [place] Urine Protein Urine Glucose (UA) Urine Ketones Urine Occult Blood Urine Nitrate Urine Bilirubin Urine Urobilinogen Ur Leukocyte Esterase Micro UA Comment Urine Culture Comments 09/28/17 09/28/17 09/28/17 16:15 17:33 18:25 CBC w Diff WBC RBC Hgb Hct MCV MCH MCHC RDW Plt Count MPV Neut % (Auto) Lymph % (Auto) [place] % (Auto) Eos % (Auto) Baso % (Auto) Neut # (Auto) Lymph # (Auto) [place] # (Auto) Eos # (Auto) Baso # (Auto) WBC Differential Differential Comment Puncture Site Patient Temperature VBG pH VBG pCO2 VBG pO2 VBG HCO3 VBG O2 Saturation VBG O2 Content VBG Base Excess VBG Carboxyhemoglobin VBG Methemoglobin Hemoglobin O2 Delivery Device Inspired O2 Critical Value Sodium Potassium Chloride Carbon Dioxide Anion Gap BUN Creatinine Estimated GFR POC Glucose 415 H 325 H Random Glucose Calcium Prot Corrected Calcium Phosphorus Magnesium Total Protein Beta-Hydroxybutyric Acd Urine Color Yellow Urine Clarity Clear Urine pH 5.5 Ur Specific [place] 1.010 Urine Protein Negative Urine Glucose (UA) 500 H Urine Ketones 80 or greater Urine Occult Blood Trace Urine Nitrate Negative Urine Bilirubin Negative Urine Urobilinogen 0.2 Ur Leukocyte Esterase Negative Micro UA Comment Culture not ind Urine Culture Comments Culture not ind 09/28/17 09/28/17 09/28/17 19:32 20:15 20:32 CBC w Diff WBC RBC Hgb Hct MCV MCH MCHC RDW Plt Count MPV Neut % (Auto) Lymph % (Auto) [place] % (Auto) Eos % (Auto) Baso % (Auto) Neut # (Auto) Lymph # (Auto) [place] # (Auto) Eos # (Auto) Baso # (Auto) WBC Differential Differential Comment Puncture Site Patient Temperature VBG pH VBG pCO2 VBG pO2 VBG HCO3 VBG O2 Saturation VBG O2 Content VBG Base Excess VBG Carboxyhemoglobin VBG Methemoglobin Hemoglobin O2 Delivery Device Inspired O2 Critical Value Sodium 137 Potassium 3.4 L Chloride 104 D Carbon Dioxide 19.9 L Anion Gap 13 BUN 15 Creatinine 1.10 Estimated GFR 69 L POC Glucose 327 H 273 H Random Glucose 270 H D Calcium 7.7 L Prot Corrected Calcium Phosphorus Magnesium Total Protein Beta-Hydroxybutyric Acd Urine Color Urine Clarity Urine pH Ur Specific [place] Urine Protein Urine Glucose (UA) Urine Ketones Urine Occult Blood Urine Nitrate Urine Bilirubin Urine Urobilinogen Ur Leukocyte Esterase Micro UA Comment Urine Culture Comments 09/28/17 09/28/17 09/28/17 21:51 22:44 23:42 CBC w Diff WBC RBC Hgb Hct MCV MCH MCHC RDW Plt Count MPV Neut % (Auto) Lymph % (Auto) [place] % (Auto) Eos % (Auto) Baso % (Auto) Neut # (Auto) Lymph # (Auto) [place] # (Auto) Eos # (Auto) Baso # (Auto) WBC Differential Differential Comment Puncture Site Patient Temperature VBG pH VBG pCO2 VBG pO2 VBG HCO3 VBG O2 Saturation VBG O2 Content VBG Base Excess VBG Carboxyhemoglobin VBG Methemoglobin Hemoglobin O2 Delivery Device Inspired O2 Critical Value Sodium Potassium Chloride Carbon Dioxide Anion Gap BUN Creatinine Estimated GFR POC Glucose 341 H 237 H 211 H Random Glucose Calcium Prot Corrected Calcium Phosphorus Magnesium Total Protein Beta-Hydroxybutyric Acd Urine Color Urine Clarity Urine pH Ur Specific [place] Urine Protein Urine Glucose (UA) Urine Ketones Urine Occult Blood Urine Nitrate Urine Bilirubin Urine Urobilinogen Ur Leukocyte Esterase Micro UA Comment Urine Culture Comments 09/29/17 09/29/17 09/29/17 00:46 01:42 02:26 CBC w Diff WBC RBC Hgb Hct MCV MCH MCHC RDW Plt Count MPV Neut % (Auto) Lymph % (Auto) [place] % (Auto) Eos % (Auto) Baso % (Auto) Neut # (Auto) Lymph # (Auto) [place] # (Auto) Eos # (Auto) Baso # (Auto) WBC Differential Differential Comment Puncture Site Patient Temperature VBG pH VBG pCO2 VBG pO2 VBG HCO3 VBG O2 Saturation VBG O2 Content VBG Base Excess VBG Carboxyhemoglobin VBG Methemoglobin Hemoglobin O2 Delivery Device Inspired O2 Critical Value Sodium Potassium Chloride Carbon Dioxide Anion Gap BUN Creatinine Estimated GFR POC Glucose 177 H 205 H 215 H Random Glucose Calcium Prot Corrected Calcium Phosphorus Magnesium Total Protein Beta-Hydroxybutyric Acd Urine Color Urine Clarity Urine pH Ur Specific [place] Urine Protein Urine Glucose (UA) Urine Ketones Urine Occult Blood Urine Nitrate Urine Bilirubin Urine Urobilinogen Ur Leukocyte Esterase Micro UA Comment Urine Culture Comments 09/29/17 09/29/17 09/29/17 02:30 03:44 04:28 CBC w Diff WBC RBC Hgb Hct MCV MCH MCHC RDW Plt Count MPV Neut % (Auto) Lymph % (Auto) [place] % (Auto) Eos % (Auto) Baso % (Auto) Neut # (Auto) Lymph # (Auto) [place] # (Auto) Eos # (Auto) Baso # (Auto) WBC Differential Differential Comment Puncture Site Patient Temperature VBG pH VBG pCO2 VBG pO2 VBG HCO3 VBG O2 Saturation VBG O2 Content VBG Base Excess VBG Carboxyhemoglobin VBG Methemoglobin Hemoglobin O2 Delivery Device Inspired O2 Critical Value Sodium 139 Potassium 3.4 L Chloride 107 Carbon Dioxide 23.2 Anion Gap 9 BUN 12 Creatinine 0.85 Estimated GFR Greater than 89 POC Glucose 198 H 192 H Random Glucose 198 H Calcium 7.4 L* Prot Corrected Calcium 8.2 L Phosphorus 1.7 L Magnesium 2.0 Total Protein 5.6 L Beta-Hydroxybutyric Acd 1.11 H D Urine Color Urine Clarity Urine pH Ur Specific [place] Urine Protein Urine Glucose (UA) Urine Ketones Urine Occult Blood Urine Nitrate Urine Bilirubin Urine Urobilinogen Ur Leukocyte Esterase Micro UA Comment Urine Culture Comments 09/29/17 09/29/17 09/29/17 05:41 06:30 07:42 CBC w Diff WBC RBC Hgb Hct MCV MCH MCHC RDW Plt Count MPV Neut % (Auto) Lymph % (Auto) [place] % (Auto) Eos % (Auto) Baso % (Auto) Neut # (Auto) Lymph # (Auto) [place] # (Auto) Eos # (Auto) Baso # (Auto) WBC Differential Differential Comment Puncture Site Patient Temperature VBG pH VBG pCO2 VBG pO2 VBG HCO3 VBG O2 Saturation VBG O2 Content VBG Base Excess VBG Carboxyhemoglobin VBG Methemoglobin Hemoglobin O2 Delivery Device Inspired O2 Critical Value Sodium Potassium Chloride Carbon Dioxide Anion Gap BUN Creatinine Estimated GFR POC Glucose 178 H 162 H 269 H Random Glucose Calcium Prot Corrected Calcium Phosphorus Magnesium Total Protein Beta-Hydroxybutyric Acd Urine Color Urine Clarity Urine pH Ur Specific [place] Urine Protein Urine Glucose (UA) Urine Ketones Urine Occult Blood Urine Nitrate Urine Bilirubin Urine Urobilinogen Ur Leukocyte Esterase Micro UA Comment Urine Culture Comments 09/29/17 08:15 CBC w Diff WBC RBC Hgb Hct MCV MCH MCHC RDW Plt Count MPV Neut % (Auto) Lymph % (Auto) [place] % (Auto) Eos % (Auto) Baso % (Auto) Neut # (Auto) Lymph # (Auto) [place] # (Auto) Eos # (Auto) Baso # (Auto) WBC Differential Differential Comment Puncture Site Patient Temperature VBG pH VBG pCO2 VBG pO2 VBG HCO3 VBG O2 Saturation VBG O2 Content VBG Base Excess VBG Carboxyhemoglobin VBG Methemoglobin Hemoglobin O2 Delivery Device Inspired O2 Critical Value Sodium 141 Potassium 3.7 Chloride 110 H Carbon Dioxide 21.9 Anion Gap 9 BUN 11 Creatinine 0.81 Estimated GFR Greater than 89 POC Glucose Random Glucose 172 H Calcium 7.3 L* Prot Corrected Calcium 7.9 L Phosphorus 1.3 L Magnesium 1.9 Total Protein 5.9 L Beta-Hydroxybutyric Acd Urine Color Urine Clarity Urine pH Ur Specific [place] Urine Protein Urine Glucose (UA) Urine Ketones Urine Occult Blood Urine Nitrate Urine Bilirubin Urine Urobilinogen Ur Leukocyte Esterase Micro UA Comment Urine Culture Comments Assessment and Plan - Assessment (1) DKA (diabetic ketoacidoses) Code(s): E13.10 - Other specified diabetes mellitus with ketoacidosis without coma Status: Acute (2) Diabetes mellitus, new onset Code(s): E11.9 - Type 2 diabetes mellitus without complications Status: Acute (3) Hypertension Code(s): I10 - Essential (primary) hypertension Status: Acute - Plan This is a 57-year-old male patient with: Acute diabetic ketoacidosis New onset diabetes mellitus -Patient with complaints of polyuria, polydipsia and elevated random glucose in the 600's upon presentation. -PH 7.29, anion gap 17, beta hydroxybutyrate 5.14. Has improved. -Was admitted to ICU for closer monitoring. We will transfer down to [facility]. -DKA protocol initiated. Has been discontinued. -life skills educator as well as dietitian consulted, input and recommendations pending. -Hemoglobin A1c ordered and pending, will follow. Still pending. -Diabetic ADA diet ordered. Monitor blood sugar trends. Tolerating well. -CBC reviewed, essentially remarkable. Pseudo-hyponatremia suspect secondary to DKA and improved. -Sodium 129 upon presentation. Sodium today 141. -Will continue to monitor BMP. Acute kidney injury suspect secondary to DKA. Resolved. -Creatinine 1.6/GFR 44 on presentation. Creatinine improved to 0.8. -Continue to monitor BMP. Hypertension, chronic: Will continue home medications. Monitor blood pressure trends. Chronic back pain: Patient is prescribed p.o. morphine at home. [employer] database reviewed, will continue as prescribed at home. History of anxiety: Will continue home Xanax. E-forse reviewed. DVT prophylaxis: SCDs. Heparin. Discharge Planning: Awaiting presentation of nurses educator dietitian. Also awaiting hemoglobin A1c.
[2017-09-29] MEDS ORDERED: Dextrose 50% in Water 50 ML Vial IV.PUSH PRN (09:59)
[2017-09-29] MEDS ORDERED: Insulin Detemir Inj 1,000 UNIT/10 ML Vial SQ SCH (11:00)
[2017-09-29] MEDS: Insulin NovoLOG Aspart Correctional Sugar Inj SQ SCH ×3 (12:25→20:41)
[2017-09-29 15:27] LABS: Hemoglobin A1c 12.4 % (4.3-6.0)
[2017-09-29] MEDS ORDERED: Insulin Detemir Inj 1,000 UNIT/10 ML Vial SQ ONE (17:33)
[2017-09-29 17:58] LABS: Potassium 4.1 meq/L (3.5-5.1)
[2017-09-29 18:01] LABS: Calcium 7.7 mg/dL (8.5-10.1); Carbon Dioxide 21.4 meq/L (21.0-32.0)
[2017-09-29] MEDS: Insulin Detemir Inj 1,000 UNIT/10 ML Vial SQ SCH (20:40)
[2017-09-30] MEDS: Sod Chloride 0.9% Inj 1,000 ML IV.CONT SCH (02:33)
[2017-09-30] MEDS: Chlorhexidine Gluconate 2% 1 Pack (2 Cloths) TOPICAL SCH (04:17)
[2017-09-30] MEDS: Heparin - SQ 10,000 UNITS/ML Vial SQ SCH (05:28)
[2017-09-30 05:58] LABS: Chloride 106 meq/L (98-107); Potassium 3.7 meq/L (3.5-5.1); Sodium 140 meq/L (136-145)
[2017-09-30 06:01] LABS: Calcium 7.9 mg/dL (8.5-10.1)
[2017-09-30 06:02] LABS: Anion Gap 12 meq/L (5-15); Carbon Dioxide 22.5 meq/L (21.0-32.0)
[2017-09-30 06:18] LABS: Blood Urea Nitrogen 9 mg/dL (7-18); Glomerular Filtration Rate Greater Than 89 mL/min (>89); Glucose,Random 264 mg/dL (74-106)
[2017-09-30] MEDS: Morphine Sulfate 60 MG SR Tablet PO SCH (08:32)
[2017-09-30] MEDS: Carvedilol 12.5 MG Tablet PO SCH (08:33)
[2017-09-30] MEDS: Insulin NovoLOG Aspart Correctional Sugar Inj SQ SCH (08:33)
[2017-09-30] MEDS: Insulin Detemir Inj 1,000 UNIT/10 ML Vial SQ SCH (08:35)
[2017-09-30] MEDS: Senna/Docusate Sodium 8.6/50 MG Tablet PO SCH (08:35)
--- NOTE | 2017-09-30 10:49 | P.DIET ---
Nutritional Evaluation Type of nutrition evaluation: initial Nutrition screening: [facility] [place] Screening comments: 09/28 Diet Education Subjective Subjective Comments: Pt provided w/diet education for consistent CHO and reading food labels. Objective - Diagnosis DKA, New Onset Diabetes - Objective [place] body weight: 80.9 kg % IBW: 161 Dietitian Reviewed in Medical Record: Current diet, Curent medications, Intake & Output, Labs, Medical history Diet Order: 1800ADA Objective Comments: HgA1C 12.4, Admiss.Glucose 628 Meds Include: [place] Assessment Assessment: Pt provided w/Diet Education for 1800ADA Consistent CHO diet and reading food labels. Pt's questions answered to his satisfaction. RD contact info provided for additional questions as needed. Recommendations: 1. Pt provided w/Diet Education for 1800ADA Consistent CHO diet and reading food labels 2. Pt's questions answered to his satisfaction 3. RD contact info provided for additional questions as needed
--- NOTE | 2017-09-30 11:04 | P.DS ---
Date of admission: 09/28/17 15:34 Primary care physician: Markell Gannon MD Brief History from admission: This is a 57-year-old male patient with a known medical history of hypertension , neuropathy and chronic pain who presented to the ED with abnormal lab results. Patient states that yesterday he went to his PCP who performed routine blood work and was told that his random glucose was in the 600s and was recommended to present to the emergency department for evaluation. Patient states that he has been feeling very fatigued and tired for the last 2 weeks with complaints of increasing urination as well as dry mouth. He states that he has been drinking increasing amounts of liquids without any relief of his dry mouth. He denies any recent illness including fever, chills, cough, shortness of breath, dumping, nausea, vomiting, diarrhea or dysuria. Patient does state that he has been increasingly anxious and stressed lately. He does state that he has been eating increasing amounts of junk food and has not been exercising. He is compliant with his medications. He does admit to some blurry vision associated with his other complaints. Patient does admit to smoking 1 pack a day of cigarettes 50 years. DS: Diagnosis - Discharge Diagnosis (1) DKA (diabetic ketoacidoses) Status: Acute (2) Diabetes mellitus, new onset Status: Acute (3) Hypertension Status: Acute DS: Medications - Discharge Medications Prescriptions: blood glucose strip-disp meter [Footmarks Blood Glucose System] #1 each blood glucose strip-disp meter #1 each blood sugar diagnostic [Accu-Chek SmartView Test Strip] #20 each blood-glucose meter [Accu-Chek Guide Glucose Meter] #1 each insulin glargine [Lantus U-100 Insulin] 50 unit SUB-Q DAILY 30 Days #15 ml lancets [Easy Touch Lancets] #50 each metformin 500 mg PO BID 30 Days #60 tab DS: Summary Hospital Course: This is a 57-year-old male patient with acute DKA and new onset DM. Patient with complaints of polyuria, polydipsia and elevated random glucose in the 600' s upon presentation. PH 7.29, anion gap 17, beta hydroxybutyrate 5.14. Improved on day of discharge. Was admitted to ICU for closer monitoring. DKA protocol initiated. certified diabetes educator as well as dietitian saw patient during hospitalizations. See notes. Hemoglobin A1c 12.4. Diabetic ADA diet encouraged. CBC essentially unremarkable. Pseudo-hyponatremia on presentation, 129 improved to 141. Acute kidney injury resolved as well. Chronic back pain, patient is prescribed p.o. morphine at home. E-forse database reviewed, will continue as prescribed at home. History of anxiety: Will continue home Xanax. E-forse reviewed. Patient to follow up with PCP on discharge. - Time Spent with Patient Total time spent providing and/or coordinating discharge services: Greater than 30 minutes - Quality: VTE Deep Vein Thrombosis/Pulmonary Embolism Present on Admission: No Exam Vital signs: Vital Signs 09/29/17 12:19 09/29/17 16:14 09/29/17 19:57 Temperature 97.9 F 98.1 F 98.0 F Pulse Rate 86 80 84 Respiratory Rate 21 28 H 11 L Blood Pressure 132/81 159/72 H 119/52 L Pulse Oximetry 96 95 09/29/17 21:51 09/29/17 23:54 09/30/17 03:58 Temperature 97.3 F L Pulse Rate 85 79 Respiratory Rate 13 16 19 Blood Pressure 105/55 L 134/78 Pulse Oximetry 93 L 94 L 09/30/17 08:00 09/30/17 08:20 09/30/17 08:38 Temperature 98.0 F Pulse Rate 78 80 Respiratory Rate 20 Blood Pressure 137/74 Pulse Oximetry 95 97 Intake & Output 09/29/17 09/30/17 09/30/17 18:59 06:59 18:59 Intake Total 1619 / 1619 240 / 240 Output Total 680 / 680 Balance 939 / 939 240 / 240 Weight 131.5 kg Intake: IV 899 / 899 D5W/Normal Saline Inj 1,000 ML 494 / 494 @ 200 mls/hr IV.CONT .Q5H LEONEL Rx#:[id number] NovoLIN R (IV Infusion) 100 100 / 100 UNIT In NS Inj 99 ML @ 13 UNITS /HR 13 mls/hr IV.CONT TITRATE PRN Rx#:[id number] KCl 20 mEq Premix Inj 20 meq In 100 / 100 100 ml @ 100 mls/hr IV.SIG Q1H PRN Rx#:[id number] KCl 40 mEq Premix Inj 40 meq In 100 / 100 100 ml @ 50 mls/hr IV.SIG Q2H PRN Rx#:[id number] Sodium Phosphate Inj 15 MMOL In 105 / 105 NS Inj 100 ML @ 25 mls/hr IV. SIG UNSCH PRN Rx#:[id number] Oral 720 / 720 240 / 240 Output: Urine 680 / 680 Other: # Voids 1 3 Date of Last Bowel Movement 09/28/17 - Constitutional no acute distress - Routine HEENT Exam Head: Present: normocephalic Eye: Present: PERRL ENT: Present: mucous membranes moist - Routine Neck Exam Present: supple, full ROM - Routine Cardiovascular Exam Present: RRR, S1, S2 - Routine Abdominal Exam Present: soft - Routine Skin Exam Present: intact - Routine Neurological Exam Present: alert, oriented X3 Results Procedures completed during hospitalization: None Labs on day of discharge: Labs from last 24 hours 09/30/17 09/30/17 09/29/17 07:41 04:37 20:31 Sodium 140 Potassium 3.7 Chloride 106 Carbon Dioxide 22.5 Anion Gap 12 BUN 9 Creatinine 0.79 Estimated GFR Greater than 89 POC Glucose 242 H 372 H Random Glucose 264 H D Hemoglobin A1c Calcium 7.9 L Nasal Screen MRSA (PCR) 09/29/17 09/29/17 09/29/17 17:45 17:10 12:20 Sodium 136 Potassium 4.1 Chloride 104 Carbon Dioxide 21.4 Anion Gap 11 BUN 12 Creatinine 1.00 Estimated GFR 76 L POC Glucose 385 H 337 H Random Glucose 421 H D Hemoglobin A1c Calcium 7.7 L Nasal Screen MRSA (PCR) 09/29/17 09/28/17 08:28 14:13 Sodium Potassium Chloride Carbon Dioxide Anion Gap BUN Creatinine Estimated GFR POC Glucose Random Glucose Hemoglobin A1c 12.4 H Calcium Nasal Screen MRSA (PCR) Not detected Discharge Plan - Discharge Disposition Patient Disposition: 01 Discharge Home - Discharge Condition Condition: Fair - Discharge Order Discharge Orders: Discharge Order (Routine); Ordered 09/30/17 Ordered By: My Escoto - Discharge Details Anticipated Discharge Date: 09/29/17 - Physicians Team Primary Care Provider: Markell Gannon Attending Provider: Chin Godfrey Other Providers: Jessica Lopez
== END 2017-09-30 11:30 | disposition home or self-care (01) ==
LOC: PHED 11:55 → PHEDA 15:34 → PHICU 16:15 → PHEDA 17:22
PROVIDERS: ADMIT Internal Medicine; ATTEND Internal Medicine